=== PATIENT | male | born 1950 ===

== ENCOUNTER 2018-04-02 12:28 | Outpatient (CLI) | payer OTHER ==
[~2018-04-02] VITALS: Ht 170.2 cm; Wt 70.3 kg
== END 2018-04-02 12:45 | disposition home or self-care (01) ==
LOC: OFIC 805 12:28
DX: H90.3 Sensorineural hearing loss, bilateral (principal); H81.13 Benign paroxysmal vertigo, bilateral; J30.89 Other allergic rhinitis; R09.81 Nasal congestion

== ENCOUNTER 2018-05-10 07:38 | Outpatient (CLI) | payer OTHER ==
[~2018-05-10] VITALS: Ht 152.4 cm; Wt 70.3 kg
== END 2018-05-10 08:00 | disposition home or self-care (01) ==
LOC: OFIC 805 07:38
DX: H81.13 Benign paroxysmal vertigo, bilateral (principal); J30.89 Other allergic rhinitis

== ENCOUNTER 2018-12-27 07:32 | Outpatient (CLI) | payer OTHER ==
[~2018-12-27] VITALS: Ht 152.4 cm; Wt 70.3 kg
== END 2018-12-27 07:45 | disposition home or self-care (01) ==
LOC: OFIC 805 07:32
DX: H91.8X3 Other specified hearing loss, bilateral (principal); H81.10 Benign paroxysmal vertigo, unspecified ear; J30.89 Other allergic rhinitis; J32.8 Other chronic sinusitis; R09.81 Nasal congestion